=== PATIENT | male | born 1990 | race Caucasian/White ===

== ENCOUNTER 2018-05-06 14:21 | Emergency (ER) | payer MEDICAID ==
[~2018-05-06] VITALS: Ht 172.7 cm; Wt 97.5 kg
[2018-05-06 14:22] VITALS: BP 150/79
[2018-05-06] MEDS ORDERED: BUSP10TA PO (14:52)
[2018-05-06] MEDS ORDERED: CITA10TA4 PO (14:52)
== END 2018-05-06 15:34 | disposition home or self-care (01) ==
LOC: ED 15:00
DX: F41.1 Generalized anxiety disorder (principal); K08.89 Other specified disorders of teeth and supporting structures; A59.03 Trichomonal cystitis and urethritis; R51 Headache
CPT/HCPCS: 99283

== ENCOUNTER 2018-06-09 16:35 | Emergency (ER) | payer MEDICAID ==
[~2018-06-09] VITALS: Ht 172.7 cm; Wt 98.2 kg
[~2018-06-09 16:35] MED LIST: BUSP10TA PO; CITA10TA4 PO
[2018-06-09 16:37] VITALS: BP 141/83
== END 2018-06-09 18:27 | disposition home or self-care (01) ==
LOC: ED 17:50
DX: M25.562 Pain in left knee (principal)
CPT/HCPCS: 99284

== ENCOUNTER 2018-11-09 10:43 | Emergency (ER) | payer SELFPAY ==
[~2018-11-09] VITALS: Ht 172.7 cm; Wt 99.2 kg
[2018-11-09 10:48] VITALS: BP 124/77
[2018-11-09] MEDS ORDERED: LIDOCAINE-MPF 1%, 5ML INFIL ONE (11:00)
[2018-11-09] MEDS ORDERED: BACITRACIN ZINC OINT 500U/GM, 0.9 GM ONE (11:04)
--- NOTE | 2018-11-09 11:21 | NUR ---
IRRIGATION WITH NS, BACITRACIN APPLIED, GAUZE DRESSING WITH MÓNICA TAPE APPLIED. SUPPLIES FOR REDRESS PROVIDED. EDUCATION FOR S/SX OF INFECTION REVIEWED WITH PT AND S/O AT BS.
== END 2018-11-09 11:26 | disposition home or self-care (01) ==
LOC: ED 11:15
DX: S61.309A Unspecified open wound of unspecified finger with damage to nail, initial encounter (principal); F41.9 Anxiety disorder, unspecified; Z88.8 Allergy status to other drugs, medicaments and biological substances; W22.8XXA Striking against or struck by other objects, initial encounter; Y93.89 Activity, other specified; Y92.009 Unspecified place in unspecified non-institutional (private) residence as the place of occurrence of the external cause; Y99.8 Other external cause status
CPT/HCPCS: 99283

== ENCOUNTER 2019-09-01 17:40 | Emergency (ER) | payer SELFPAY ==
[~2019-09-01] VITALS: Ht 172.7 cm; Wt 98.1 kg
[2019-09-01] MEDS ORDERED: ZOFRAN (17:56)
--- NOTE | 2019-09-01 18:00 | NUR ---
PT TO ED FOR ANXIETY AND NAUSEA R/T ANXIETY. PT STATES FEELS "SHAKY AND WOBBLY, LIKE I JUST GOT OFF A FISHING BOAT" X A FEW DAYS. PT CONNECTED TO MONITORS. VSS. WARN BLANKETS PROVIDED FOR COMFORT. NO OTHER NEEDS EXPRESSED. CALL LIGHT WITHIN REACH. AWAITING EDMD ASSESSMENT.
[2019-09-01] MEDS ORDERED: ACETAMINOPHEN 325 MG TABLET ONE (18:29)
[2019-09-01] MEDS ORDERED: ONDANSETRON ODT 4 MG PO ONE (18:30)
[2019-09-01] MEDS ORDERED: ACETAMINOPHEN 325 MG TABLET PO ONE (18:30)
[2019-09-01 18:48] LABS: RAPID INFLUENZA A Negative (Negative); RAPID INFLUENZA B Negative (Negative)
[2019-09-01 18:53] LABS: BASOPHILS # (AUTO) 0.03 x10^3/uL (0-0.1); BASOPHILS % (AUTO) 0 % (0-1); EOSINOPHILS % (AUTO) 1 % (1-7); LYMPHOCYTES # (AUTO) 2.83 x10^3/uL (1-3.4); LYMPHOCYTES % (AUTO) 33 % (22-44); MD NO; MEAN CORPUSCULAR HGB CONC 33.1 g/dL (33.2-36.2); MEAN CORPUSCULAR VOLUME 93.6 fL (81-97); MEAN PLATELET VOLUME 7.8 fL (7.4-10.4); MONOCYTES # (AUTO) 0.63 x10^3/uL (0.2-0.8); MONOCYTES % (AUTO) 7 % (2-9); NEUTROPHILS # (AUTO) 4.93 x10^3/uL (1.8-6.8); NEUTROPHILS % (AUTO) 58 % (42-75); PLATELET COUNT 236 x10^3/uL (130-400); RED BLOOD COUNT 5.73 x10^6/uL (4.38-5.82); RED CELL DISTRIBUTION WIDTH 12.8 % (9.4-14.8)
[2019-09-01 19:04] LABS: CHLORIDE 107 mmol/L (98-107)
--- NOTE | 2019-09-01 19:08 | NUR ---
PT RESTING IN ROOM WITH FAMILY AT BS. VSS. PT STATES HE ONLY NEEDS ONE TYLENOL AND HAS NOT DECIDED IF HE WANTS TO TAKE THE SECOND ONE YET. 325MG TYLENOL SITTING ON BS TRAY. PT STATES NO N/V AND IS ABLE TO TOLERATE PO WATER. PT BECAME VERY ANXIOUS DURING BLOOD DRAW BUT WAS AGREEABLE TO DRAW. AWAITING LAB RESULTS. NO NEEDS EXPRESSED.
[2019-09-01 19:12] VITALS: BP 147/92
[2019-09-01 19:29] LABS: ALANINE AMINOTRANSFERASE 35 U/L (12-78); ALBUMIN 4.5 g/dL (3.4-5.0); ALKALINE PHOSPHATASE 81 U/L (45-117); ANION GAP 8 mmol/L (5-15); BILIRUBIN,TOTAL 0.7 mg/dL (0.2-1.0); CALCIUM 9.1 mg/dL (8.5-10.1); CREATININE 0.97 mg/dL (0.7-1.3); TOTAL PROTEIN 8.1 g/dL (6.4-8.2)
--- NOTE | 2019-09-01 19:39 | NUR ---
all results back at this time. chart up for recheck.
== END 2019-09-01 20:11 | disposition home or self-care (01) ==
LOC: ED 20:08
DX: F41.9 Anxiety disorder, unspecified (principal); R11.2 Nausea with vomiting, unspecified; F43.0 Acute stress reaction; F32.9 Major depressive disorder, single episode, unspecified
CPT/HCPCS: 36415; 80053; 85025; 87400; 99284

== ENCOUNTER 2019-10-08 15:22 | Emergency (ER) | payer SELFPAY ==
[~2019-10-08] VITALS: Ht 172.7 cm; Wt 100.0 kg
[~2019-10-08 15:22] MED LIST changes: +ZOFRAN
[2019-10-08 15:25] VITALS: BP 125/81
--- NOTE | 2019-10-08 15:33 | NUR ---
HAS BEEN FEELING SICK FOR 1 DAY. HERE FOR FLU TEST. RESTING ON GRISEL. AUDRA. VAN AT BEDSIDE TO ASSESS PT.
[2019-10-08 16:39] LABS: RAPID INFLUENZA A Negative (Negative); RAPID INFLUENZA B Negative (Negative)
== END 2019-10-08 16:51 | disposition home or self-care (01) ==
LOC: ED 16:45
DX: J06.9 Acute upper respiratory infection, unspecified (principal)
CPT/HCPCS: 71046; 87400; 99284

== ENCOUNTER 2019-10-29 19:00 | Emergency (ER) | payer MEDICAID ==
[~2019-10-29] VITALS: Ht 172.7 cm; Wt 99.0 kg
[2019-10-29 20:30] LABS: BASOPHILS # (AUTO) 0.03 x10^3/uL (0-0.1); BASOPHILS % (AUTO) 0 % (0-1); EOSINOPHILS # (AUTO) 0.19 x10^3/uL (0-0.4); EOSINOPHILS % (AUTO) 3 % (1-7); LYMPHOCYTES # (AUTO) 2.48 x10^3/uL (1-3.4); LYMPHOCYTES % (AUTO) 33 % (22-44); MD NO; MEAN CORPUSCULAR HEMOGLOBIN 30.9 pg (27.5-34.5); MEAN CORPUSCULAR HGB CONC 33.3 g/dL (33.2-36.2); MEAN CORPUSCULAR VOLUME 92.6 fL (81-97); MEAN PLATELET VOLUME 7.9 fL (7.4-10.4); MONOCYTES # (AUTO) 0.57 x10^3/uL (0.2-0.8); MONOCYTES % (AUTO) 8 % (2-9); NEUTROPHILS % (AUTO) 57 % (42-75); PLATELET COUNT 242 x10^3/uL (130-400); RED BLOOD COUNT 5.28 x10^6/uL (4.38-5.82); RED CELL DISTRIBUTION WIDTH 12.4 % (9.4-14.8)
[2019-10-29 20:37] VITALS: BP 156/103
--- NOTE | 2019-10-29 20:37 | NUR ---
PT CAME IN CO OF RIGHT EAR NUMBESS. WAS HERE A COUPLE WEEKS AGO AND A DIAGNOSED WITH A EAR INFECTION. COMPLETED COURSE OF ABX. PT FEELS LIKE HIS INFECTION IS RETURNING. WARM BLANKET PROVIDED. CALL LIGHT WITHIN REACH
[2019-10-29 20:40] LABS: ANION GAP 5 mmol/L (5-15); CALCIUM 8.2 mg/dL (8.5-10.1); CHLORIDE 107 mmol/L (98-107); CREATININE 1.02 mg/dL (0.7-1.3)
== END 2019-10-29 21:37 | disposition home or self-care (01) ==
LOC: ED 19:40
DX: F41.1 Generalized anxiety disorder (principal); R06.4 Hyperventilation; R42 Dizziness and giddiness
CPT/HCPCS: 36415; 70450; 80048; 85025; 93005; 99284

== ENCOUNTER 2020-01-02 11:48 | Emergency (ER) | payer MEDICAID ==
[~2020-01-02] VITALS: Ht 172.7 cm; Wt 98.6 kg
[2020-01-02 11:52] VITALS: BP 133/81
--- NOTE | 2020-01-02 12:02 | NUR ---
PT C/O MULTIPLE TOOTH PAIN X2-3 WEEKS. PT SEE[address] ENT [address] FOR FEELING OFF BALANCE. PROVIDER AT BEDSIDE TO ASSESS PT.
== END 2020-01-02 12:37 | disposition home or self-care (01) ==
LOC: ED 12:31
DX: K02.9 Dental caries, unspecified (principal)
CPT/HCPCS: 99283